=== PATIENT | female | born 1995 | race Caucasian/White ===

== ENCOUNTER 2023-08-03 11:08 | Outpatient (CLI) | payer BC, SELFPAY ==
--- NOTE | 2023-08-03 12:41 | US_ITS ---
PROCEDURE: US OB <= 14 WEEKS FETUS CLINICAL INDICATION: Recheck for Viable COMPARISON: No exams were available for comparison FINDINGS: Transvaginal sonographic images of the pelvis were obtained. From her last menstrual period she is 8weeks 5days. An intrauterine gestational sac is present with a pole with a crown-rump length of 2.23cm This correlates to a gestational age of 9weeks 0 days. heart tones are present with an FHR of 73bpm. Yolk sac is noted. The yolk sac measures 4.2mm. There appears to be both a chest wall and abdominal wall defect. There is a slow heartbeat and the heart appears external to the chest. There is an abdominal wall defect consistent with omphalocele/gastroschesis. The right ovary is seen and appears normal. The left ovary is seen and appears normal. There is no fluid in the cul-de-sac. IMPRESSION: 1. Viable fetus within the uterine cavity with slow heart rate activity. 2. The heart appears to be external to the chest. 3. There is an omphalocele/gastroschesis. 4. Both ovaries are seen and appear normal. 5. Suggest repeat ultrasound within 1 week. Dictated by: Andrew Negrete MD 08/03/2023 15:42 Andrew Negrete MD in [facility] 08/03/2023 15:42
[2023-08-03 12:42] LABS: HCG,Quantitative 112330 mIU/ml (0-5.42)
[2023-08-04 08:38] LABS: Progesterone 7.1 ng/mL (.)
== END 2023-08-03 23:59 ==
PROVIDERS: Visit Provider Obstetrics & Gynecology
DX: O20.0 Threatened abortion (principal); N92.6 Irregular menstruation, unspecified
CPT/HCPCS: 36415; 76801; 84144; 84702

== ENCOUNTER 2023-08-10 14:47 | Outpatient (CLI) | payer BC, SELFPAY ==
--- NOTE | 2023-08-10 14:54 | US_ITS ---
PROCEDURE: US OB <= 14 WEEKS FETUS CLINICAL INDICATION: recheck for viable COMPARISON: US US OB <= 14 WEEKS FETUS from 08/03/2023 FINDINGS: Transvaginal sonographic images of the pelvis were obtained. From her last menstrual period she is 9weeks 5days. An intrauterine gestational sac is present with a pole with a crown-rump length of 2.33cm This correlates to a gestational age of 9weeks 2days. heart tones are ABSENT today. Yolk sac is noted. The yolk sac measures 5.3mm. The right ovary is seen and appears normal. The left ovary is seen and appears normal. There is no fluid in the cul-de-sac. IMPRESSION: 1. Nonviable fetus within the uterine cavity. heart tones are absent today. No Doppler flow to the fetus. 2. Fetus measures 9 weeks 2 days. 3. Both ovaries are seen and appear normal. 4. Patient will be seen in the physician's office today. Dictated by: Andrew Negrete MD 08/10/2023 16:53 Andrew Negrete MD in OV 08/10/2023 16:53
[2023-08-10 17:41] LABS: HCG,Quantitative 44878 mIU/ml (0-5.42)
== END 2023-08-10 23:59 ==
LOC: RAD 14:48
PROVIDERS: Visit Provider Obstetrics & Gynecology
DX: O20.0 Threatened abortion (principal); O03.9 Complete or unspecified spontaneous abortion without complication; Z3A.14 14 weeks gestation of pregnancy
CPT/HCPCS: 36415; 76801; 84702